=== PATIENT | female | born 1990 | race Caucasian/White ===

== ENCOUNTER 2018-11-03 06:55 | Inpatient (IN) ==
--- NOTE | 2018-11-03 08:02 | OB/GYN History & Physical ---
Date of Encounter: 11/03/18 Time of Encounter: 07:57 Assessment and Plan (1) 40 weeks gestation of Current visit: Yes Status: Acute 28yo at 40+0wks GA, LOAN 11/03/2018 who presents for scheduled IOL at term 1. Scheduled IOL - uncomplicated - GBS negative, VERTEX presentation - SVE: cl/80/-2, will be miso induction until able to place preston - OK for epidural when patient desires, NUBAIN also OK - denies n/v/d, denies VB/LOF/contraction(s) - negative PreE workup on 10/17 with concern for gHTN v. PreE (was negative) Dispo: Miso IOL until able to place preston. Pending cervical thinning, will either repeat miso dose or start IV pitocin. MD DORIAN History of Present Illness Chief complaint: Scheduled IOL at term HPI: Ms. Kelley is a 28 year old female at 40+0wks GA who presents for scheduled IOL for Dr. Kulkarni. Patient is with uncomplicated , full term. Denies n/v/d. Denies abnormal VB/LOF/contraction(S). Reportedly with aminata davies, and does not excessive movement. Denies OLIVEROS/CP. Minimal lower extremity swelling. LOAN: 11/03/2018 GBS negative TAUS: vertex Patient was sent to triage on 10/17 with concern for gHTN v. SI PreE. 24hr urine was completed and was negative (280mg/24hr). VSS, HDS. Patient with normal BP today. Denies si/sx of PreE including: OLIVEROS/blurry vision/CP/increased extremity and facial swelling/RUQPain. Patient for IOL: miso (cl/80/-2) on last cervical examination on 11/01/2017. Past Med Surg Social Fam HX - Past Medical History Medical history: no medical history Psychiatric history: no psych history - Past Surgical History Surgical History: orthopedic, other Additional surgical history: T/A, deviated septum, ACL - Social History Smoking Status: Never smoker Smokeless Tobacco Status: No Alcohol use: none Drug use: none - Family History Mother Adopted: No Family Member Ethnicity: Non- Living Status: Still Living Hx Family Cardiac Disorders: No Hx Family Respiratory Disorders: No Hx Family Cancer: No Hx Family GI Disorders: No Hx Family Endocrine Disorder: No Hx Family Neuromuscular Disorders: No Hx Family Neurologic Disorders: No Hx Family HEENT Disorders: No Hx Family Autoimmune Disorders: No Obstetrical History - Pregnancies : 1 Para: 0 Term: 0 : 0 Ab's: 0 Livin Medications and Allergies Prenata Chewable Tablet 1 tab PO DAILY 10/14/18 [History] Allergy/AdvReac Type Severity Reaction Status Date / Time No Known Allergies Allergy Verified 10/14/18 13:33 Exam - Constitutional Constitutional: well developed, well nourished, no acute distress, average body habitus - HEENT HEENT: Normocephaly, Mucus Membranes Moist - Neck Neck exam: full ROM - Lungs Respiratory exam: CTAB - Cardiovascular Cardiovascular exam: RRR - Abdomen Abdomen: Present: bowel sounds normal - Vagina Vagina: Present: normal moisture - Cervix Dilation: 0 Effacement: 80 Station: -2 - Uterus Uterus exam: Present: normal size, normal contour - Anus/Rectum Anus/Rectum: Present: normal perianal skin, heme negative Results All other labs normal.
[2018-11-03] MEDS ORDERED: miSOPROStol 25 MCG TABLET VG PRN (08:05)
[2018-11-03] MEDS ORDERED: Famotidine 20 MG/2 ML VIAL IVP PRN ×2 (08:06)
[2018-11-03] MEDS ORDERED: *HR* Nalbuphine 10 MG/ML AMPUL IVP PRN (08:06)
[2018-11-03] MEDS ORDERED: Naloxone 0.4 MG/ML INJ IVP PRN ×2 (08:06)
[2018-11-03] MEDS ORDERED: Metoclopramide 10 MG/2 ML VIAL IVP PRN ×2 (08:06)
[2018-11-03] MEDS ORDERED: Ringers Solution, Lactated 1,000 ML IVC SCH ×2 (08:15)
[2018-11-03 08:24] LABS: Basophils % 0.3 %; Eosinophils # 0.2 K/mcL (0.0-0.6); Eosinophils % 1.3 %; Hematocrit 37.9 % (35.3-44.9); Immature Granulocytes % 0.7 % (0-4); Lymphocytes # 2.1 K/mcL (0.6-4.6); Lymphocytes % 15.5 %; Mean Corpuscular HGB Conc 34.3 g/dL (31.6-35.5); Mean Corpuscular Hemoglobin 31.1 pg (28.0-33.3); Mean Corpuscular Volume 90.7 fL (83.0-100.0); Mean Platelet Volume 10.4 fL (9.4-12.4); Monocytes # 0.8 K/mcL (0.0-1.3); Monocytes % 5.7 %; Neutrophils # 10.4 K/mcL (1.6-8.9); Platelet Count 189 K/mcL (140-400); Red Blood Count 4.18 M/mcL (3.82-4.97); Segmented Neutrophils % 76.5 %; White Blood Count 13.5 K/mcL (4.3-11.1)
[2018-11-03 08:36] LABS: Amphetamine Screen,Urine Negative ng/mL (Cutoff=1000); Barbiturate Screen,Urine Negative ng/mL (Cutoff=200); Benzodiazepines Screen,Urine Negative ng/mL (Cutoff=200); Cannabinoid Screen,Urine Negative ng/mL (Cutoff = 50); Cocaine Screen,Urine Negative ng/mL (Cutoff= 300); Opiate Screen,Urine Negative ng/mL (Cutoff=300); Phencyclidine Screen,Urine Negative ng/mL (Cutoff=25)
[2018-11-03] MEDS ORDERED: Bupivacaine-MPF 0.25% 10 ML VIAL EP ONE (10:56)
[2018-11-03] MEDS ORDERED: *HR* FentaNYL (PF) 100 MCG/2 ML VIAL EP ONE (10:56)
--- NOTE | 2018-11-03 10:56 | Anesthesia Evaluation PreOp ---
Date of Encounter: 11/03/18 Time of Encounter: 10:54 - Past History Planned Operation: MIRIAM Cardiac History: Denies any Significant Hx Pulmonary History: Denies Any Significant HX BACK SHOE WORKER History: Denies Any Significant HX Other Medical History: Denies Any Significant HX Anesthesia History: No Prior Anesthetic Complications (denies personal and family h/o GA complications) : Yes Alcohol Use: none Drug use: none Medications and Allergies Prenata Chewable Tablet 1 tab PO DAILY 10/14/18 [History] Allergy/AdvReac Type Severity Reaction Status Date / Time No Known Allergies Allergy Verified 10/14/18 13:33 - Meds/Allergy Pre-op Review Medications Reviewed: Yes Allergies Reviewed: Yes Beta Blockers on Current Med List: No Anesthesia Results - Labs 11/03/18 08:07 Anesthesia Exam 137/85, HR 72 O2 Sat Height 1.85 m Weight 131.6 kg NPO (# of Hours): solids > 5hr Pain Scale: 0 Pain Scale Used: Numeric (1 - 10) - HEENT Pupil (Motor): Pupils equal Mallampati: II Teeth: Normal Oral Opening: Greater than 3 - BACK SHOE WORKER LOC: Oriented BACK SHOE WORKER Motor: Normal RUE, Normal LUE, Normal RLE, Normal LLE, Normal Face BACK SHOE WORKER Sensory: Normal: RUE, LUE, RLE, LLE, Face - Cardiac Rhythm: Regular Murmur: None - Pulmonary Breath Sounds: bilateral Clear Respiratory Effort: Symmetrical Anesthesia Assess/Plan ASA Score: 2 Level of consciousness: Cooperative, Oriented, Tranquil Anesthetic Plan: Epidural Autologous Blood: No Monitoring Plan: Standard Monitors Recovery Plan: Other
[2018-11-03] MEDS ORDERED: Epidural Premix (fent/bupiv) 110 ML EP SCH (11:00)
[2018-11-03] MEDS ORDERED: miSOPROStol 25 MCG TABLET PO ONE (14:15)
[2018-11-03] MEDS ORDERED: Fluconazole 100 MG TABLET PO ONE (14:31)
[2018-11-03] MEDS ORDERED: Oxytocin 20 units/ LR 1000 mL 20 UNIT/1,000 ML BAG IVC SCH (20:30)
[2018-11-04 03:43] LABS: Basophils % 0.2 %; Eosinophils % 0.3 %; Hematocrit 33.4 % (35.3-44.9); Immature Granulocytes % 0.3 % (0-4); Lymphocytes # 1.3 K/mcL (0.6-4.6); Lymphocytes % 10.6 %; Mean Corpuscular HGB Conc 34.1 g/dL (31.6-35.5); Mean Corpuscular Hemoglobin 31.3 pg (28.0-33.3); Mean Corpuscular Volume 91.8 fL (83.0-100.0); Mean Platelet Volume 11.1 fL (9.4-12.4); Monocytes # 1.1 K/mcL (0.0-1.3); Neutrophils # 9.8 K/mcL (1.6-8.9); Platelet Count 236 K/mcL (140-400); Red Blood Count 3.64 M/mcL (3.82-4.97); Red Cell Distribution Width 13.1 % (11.5-14.5); Segmented Neutrophils % 79.6 %; White Blood Count 12.3 K/mcL (4.3-11.1)
[2018-11-04 03:57] LABS: Hemoglobin 11.4 g/dL (11.5-15.4)
--- NOTE | 2018-11-04 04:06 | Event Note ---
Date of Encounter: 11/04/18 Time of Encounter: 04:01 Patient rechecked q4hr and still with same cervical examination. We rechecked her cervix at 0400 and she was found to be minimally more effaced and anterior. /2. Preston was placed with 30cc and IV pitocin was continued. Patient was started on PO Diflucan yesterday for a SEVERE yeast infection. Her vagina was raw with fulmonant yeast one exam. Her vagina was so dry, regardless of the amount of mineral oil and lubricant. Thankfully, on this check, her vaginal exam was significantly improved. Will repeat diflucan dose today. Will keep preston on tension. MD DORIAN
[2018-11-04] MEDS ORDERED: *HR* FentaNYL (PF) 100 MCG/2 ML VIAL ONE (08:18)
[2018-11-04] MEDS ORDERED: *HR* Ropivacaine/PF 0.2% 20 ML VIAL ONE (08:18)
[2018-11-04] MEDS ORDERED: *HR* Phenylephrine 10 MG/ML VIAL ONE (08:19)
--- NOTE | 2018-11-04 09:24 | Anesthesia Procedures ---
Date of Encounter: 11/04/18 Time of Encounter: 08:25 Procedures: Anesthesia - Epidural/Spinal Patient examined: Yes OB Eval: Gestational age: 40.1 OB Eval: : 1 OB Eval: Hx Para: 0 OB Eval: Dilated at (cm): 4 OB Eval: Contractions: Non-stressed pattern Consent Obtained: Yes Supplemental Oxygen: None/Room Air Site Prep: Aseptic Technique, Sterile prep and drape, Povidone-Iodine 1% Patient position: upright Local Anesthetic: Lidocaine 1% Amount of Local Anesthetic used: 3 Touhy Needle Gauge: 18 Touhy Needle Depth (cm): 6 Catheter Depth at Skin (cm): 13 Test Dose (1.5% Lido + Epi): Volume given (mls): 3 Test Dose Result: Negative Loading Dose: Fentanyl (mcg): 100 Loading Dose: Other: 0.2% ropivicaine 5ml, normal saline 3ml's Loading Dose Administered: Thru Catheter Infusion Med: 0.125% Bupivacaine w/ 2 mcg/ml Fentanyl Infusion Rate (mls/hr): [address]: Tegaderm, Tape Interspace Used: L3-L4 Loss of Resistance (MILENA): Yes Blood: No CSF: No Paresthesia: No Spinal Needle Gauge: 25 (Intentional dural puncture. No intrathecal dosing administered.) Procedure: MIRIAM placed successfully with first pass in upright position. MILENA achieved with normal saline. Intentional dural puncture performed with 25g sprotte spinal needle through epidural needle. No intrathecal dosing administered. Epidural catheter advanced without parasthesia or resistance to 13cm at the skin. Test dose administered, patient states no ringing in the ears, palpitations or heaviness noted in legs. Test dose negative. Bolus dose administered as 3ml's every five minutes after verified hemodynamic stability. Post bolus patient states relief with contractions and no nausea. Vitals + FHT's: 0825: B/P 141/91 HR 97 RR 16 0855: B/P 153/88 HR 83 RR 14 VSS throughout procedure. FHT's noted in the 140's.
--- NOTE | 2018-11-04 11:07 | OB Labor Progress Note ---
Date of Encounter: 11/04/18 Time of Encounter: 11:05 Labor Progress Note - Subjective Subjective: Patient comfortable with epidural in place. - Cervix Cervix: 6/90/-2 - Heart Tones Heart Tones: FHR 130 bpm, moderate variability, no accels, no decels. - Skillman Skillman: Q2 - Interventions Interventions: SVE AROM for moderate amount of clear fluid IUPC placed without difficulty - Plan Physician notified: Yes Physician notified details: Dr. Kulkarni updated on SVE and AROM Plan: Continue Pitocin per protocol Anticipate
[2018-11-04] MEDS ORDERED: Fluconazole 100 MG TABLET PO ONE ×2 (12:00→19:30)
[2018-11-04] MEDS ORDERED: *HR* Ropivacaine/PF 0.5% 20 ML VIAL ONE (14:21)
--- NOTE | 2018-11-04 15:23 | Anesthesia Progress Note ---
Date of Encounter: 11/04/18 Time of Encounter: 13:30 Anesthesia Note - Note Note: 11/04/18 15:21 Called to patient bedside with complaints of pain in lower right abdomen. Bolus 5ml Ropivicaine 0.2% administered. Will follow up.
--- NOTE | 2018-11-04 15:28 | Anesthesia Progress Note ---
Date of Encounter: 11/04/18 Time of Encounter: 14:30 Anesthesia Note - Note Note: 11/04/18 15:24 Called to patient bedside with unrelieved pain in right lower abdomen. Epidural catheter pulled back to 11cm at skin from 13 at skin. Bolus ropivicaine 0.5% 5ml administered via epidural catheter. Pt stated relief of pain from 10 to 2. VSS throughout.
--- NOTE | 2018-11-04 16:29 | OB/GYN Procedure Note ---
Delivery - Delivery Date: 11/04/18 Provider: Jaspreet Kulkarni Intrapartum events: none Delivery induction: AROM, oxytocin, preston, misoprostol Delivery augmentation: rupture of membranes, pitocin Delivery monitor: external FHT, external uterine, internal FHT, internal uterine Anesthesia: epidural Quantitated Blood Loss: 300 - Infant (s) A Infant Delivery Date: 11/04/18 Delivery Time: 16:09 Presentation: vertex Position: OA Route of delivery: Gender: Female Viability: Viable Pounds: 9 Ounces: 1 Weight Gram: 4.115 kg at 1 minute: 9 at 5 mins: 9 Shoulder Dystocia: not encountered Specimens collected: cord blood Placenta: spontaneous Cord: 3 umbilical vessels - Repair Episiotomy: none Laceration Description: Vaginal - Complications Delivery complications: none Delivery comments: This patient progressed to complete and pushing. She had a spontaneous vaginal delivery of a female infant over an intact perineum. Infant's head was in the perineum easily the rest of the infant was then delivered with 1 push. cried immediately upon delivery the cord was cut to cut after cord stopped pulsating. The infant was then passed to nurse in attendance. Cord bloods obtained. The placenta was then delivered spontaneously and intact. There are no cervical or perineal lacerations noted. There was a right periurethral laceration which was not repaired as it was not bleeding. There was a vaginal laceration repaired with 0 Vicryl suture in a running locking fashion. Patient tolerated the procedure well. Estimated blood loss 300 mL. Patient delivered a female infant weight was 9 lbs. 1 oz. with Apgars of 9 at 1 minute and 9 at 5 minutes. - Disposition Mom disposition: stable in LDR disposition: stable in LDR
[2018-11-04] MEDS ORDERED: Acetaminophen 325 MG TABLET PO PRN (20:06)
[2018-11-04] MEDS ORDERED: Measles/Mumps/Rubella Vacc 0.5 ML VIAL SQ PRN (20:06)
[2018-11-04] MEDS ORDERED: Oxytocin 20 units/ LR 1000 mL 20 UNIT/1,000 ML BAG IVC SCH (20:06)
[2018-11-04] MEDS ORDERED: Lanolin 7 G OINT...G. TP PRN (20:08)
[2018-11-04] MEDS ORDERED: Benzocaine/Menthol 56 GM AEROSOL SPRAY TP PRN (20:08)
[2018-11-04] MEDS: Ibuprofen 600 MG TABLET PO PRN (21:14)
[2018-11-05 05:53] LABS: Basophils % 0.2 %; Eosinophils # 0.2 K/mcL (0.0-0.6); Eosinophils % 1.3 %; Hematocrit 32.4 % (35.3-44.9); Hemoglobin 11.1 g/dL (11.5-15.4); Immature Granulocytes % 0.6 % (0-4); Lymphocytes # 1.4 K/mcL (0.6-4.6); Lymphocytes % 9.6 %; Mean Corpuscular HGB Conc 34.3 g/dL (31.6-35.5); Mean Corpuscular Hemoglobin 31.5 pg (28.0-33.3); Mean Platelet Volume 10.3 fL (9.4-12.4); Monocytes # 0.8 K/mcL (0.0-1.3); Monocytes % 5.4 %; Neutrophils # 11.9 K/mcL (1.6-8.9); Platelet Count 161 K/mcL (140-400); Red Blood Count 3.52 M/mcL (3.82-4.97); Red Cell Distribution Width 13.2 % (11.5-14.5); Segmented Neutrophils % 82.9 %; White Blood Count 14.4 K/mcL (4.3-11.1)
[2018-11-05 07:54] VITALS: BP 129/83
[2018-11-05] MEDS ORDERED: Prenatal Vit/FA 1 EACH TABLET PO SCH (09:00)
--- NOTE | 2018-11-05 09:01 | Discharge Summary ---
Date of Encounter: 11/05/18 Time of Encounter: 08:59 - Discharge Diagnosis (1) Vaginal delivery Priority: Primary Status: Acute Comments: Continue routine care discharge home today follow up with Dr. Magali daniels 4-6 weeks (2) Breast feeding status of mother Priority: Secondary Status: Acute Comments: support prn - Discharge Medications Prescriptions: New Ibuprofen [Motrin] 600 mg PO Q6HR PRN tablet PRN Reason: Pain Benzocaine/Menthol [place] [Dermoplast [place]] 1 appl TP QID PRN aerosol PRN Reason: See Comments Lanolin [Lansinoh] 1 appl TP QID PRN oint...g. PRN Reason: Continued Prenata Chewable Tablet 1 tab PO DAILY Home Medications: Prenata Chewable Tablet 1 tab PO DAILY 10/14/18 [History] Benzocaine/Menthol [place] [Dermoplast [place]] 1 appl TP QID PRN aerosol 11/05/18 [Rx] Ibuprofen [Motrin] 600 mg PO Q6HR PRN tablet 11/05/18 [Rx] Lanolin [Lansinoh] 1 appl TP QID PRN oint...g. 11/05/18 [Rx] Allergies/Adverse Reactions: Allergy/AdvReac Type Severity Reaction Status Date / Time No Known Allergies Allergy Verified 10/14/18 13:33 Data Procedures and tests throughout hospitalization: Laboratory Tests 11/03/18 11/03/18 11/03/18 08:07 08:07 08:07 WBC 13.5 H RBC 4.18 Hgb 13.0 Hct 37.9 MCV 90.7 MCH 31.1 MCHC 34.3 RDW 13.0 Plt Count 189 MPV 10.4 Immature Gran % 0.7 Seg Neutrophils % 76.5 Lymphocytes % 15.5 Monocytes % 5.7 Eosinophils % 1.3 Basophils % 0.3 Neutrophils # 10.4 H Lymphocytes # 2.1 Monocytes # 0.8 Eosinophils # 0.2 Basophils # 0.0 Urine Opiates Screen Negative Ur Barbiturates Screen Negative Ur Phencyclidine Scrn Negative Ur Amphetamines Screen Negative U Benzodiazepines Scrn Negative Urine Cocaine Screen Negative U Marijuana (THC) Screen Negative Ur Drug Screen Interp See Below Hep Bs Antigen Nonreactive 11/04/18 11/05/18 03:30 05:35 WBC 12.3 H 14.4 H RBC 3.64 L 3.52 L Hgb 11.4 L D 11.1 L Hct 33.4 L 32.4 L MCV 91.8 92.0 MCH 31.3 31.5 MCHC 34.1 34.3 RDW 13.1 13.2 Plt Count 236 161 MPV 11.1 10.3 Immature Gran % 0.3 0.6 Seg Neutrophils % 79.6 82.9 Lymphocytes % 10.6 9.6 Monocytes % 9.0 5.4 Eosinophils % 0.3 1.3 Basophils % 0.2 0.2 Neutrophils # 9.8 H 11.9 H Lymphocytes # 1.3 1.4 Monocytes # 1.1 0.8 Eosinophils # 0.0 0.2 Basophils # 0.0 0.0 Urine Opiates Screen Ur Barbiturates Screen Ur Phencyclidine Scrn Ur Amphetamines Screen U Benzodiazepines Scrn Urine Cocaine Screen U Marijuana (THC) Screen Ur Drug Screen Interp Hep Bs Antigen Labs on day of discharge: Labs from last 24 hours 11/05/18 05:35 WBC 14.4 H RBC 3.52 L Hgb 11.1 L Hct 32.4 L MCV 92.0 MCH 31.5 MCHC 34.3 RDW 13.2 Plt Count 161 MPV 10.3 Immature Gran % 0.6 Seg Neutrophils % 82.9 Lymphocytes % 9.6 Monocytes % 5.4 Eosinophils % 1.3 Basophils % 0.2 Neutrophils # 11.9 H Lymphocytes # 1.4 Monocytes # 0.8 Eosinophils # 0.2 Basophils # 0.0 Date of admission: 11/03/18 06:55 Primary care physician: Marylin Rodarte Consults: 11/04/18 20:06 Consult to Cdl A Driver [CONS] Routine Comment: Vaginal delivery, consult needed Discharging clinician: Nelida Ham (deepak) Anticipated date of discharge: 11/05/18 - Patient Status Disposition: Home, Self-Care Condition: Good Functional capacity at discharge: independent ambulation - Discharge Instructions Follow Up With: Pinky Rivers DO [Primary Care Provider] - Jaspreet Kulkarni MD [Partnered Physician] - - Diet and Activity Activity: increase activity as tolerated Diet: regular diet Hospital Course Reason for admission: induction of labor Delivery: Episiotomy: none Laceration: none Other procedures: none complications: none Discharge diagnosis: IUP at term delivered [place] baby: female (breast feeding) Time Attestation: Total time spent providing and/or coordinating discharge services: Time Spent: Less than 30 minutes Exam - Constitutional Vitals: Temp Pulse Resp BP Pulse Ox 97.8 F 78 14 129/83 98 11/05/18 07:53 11/05/18 07:53 11/05/18 07:53 11/05/18 07:53 11/05/18 07:53 General appearance IM: A&O X 3, pleasant, answers questions appropriately - Respiratory Respiratory exam: Present: CTAB - Cardiovascular Cardiovascular exam IM: Present: RRR, +S1, +S2 - GI/Abdominal GI/Abdominal exam IM: normal bowel sounds - Uterine Tone: Firm Uterus Position: At Umbilicus, Midline - Extremities Exam Extremities exam IM: Present: full ROM, normal inspection, pedal edema (1+ bilateral feet) - Neurological Exam Neurological exam: alert, oriented X3, reflexes normal
[2018-11-05] MEDS: Ibuprofen 600 MG TABLET PO PRN (09:09)
== END 2018-11-05 18:45 | disposition home or self-care (01) | DRG 806 ==
LOC: 1NENULAB 06:55 → 1NENUOBS 11-04 20:00
PROVIDERS: ADMIT Student in an Organized Health Care Education/Training Program; ATTEND Student in an Organized Health Care Education/Training Program

== ENCOUNTER → 2020-03-06 14:40 | Observation (INO) ==
[2020-03-06 11:49] LABS: Bilirubin,Urine Negative (Negative); Blood,Urine Moderate (Negative); Clarity,Urine Clear (Clear); Color,Urine Light-Yellow (Yellow); Glucose,Urine (UA) Normal (Normal); Ketones,Urine Negative (Negative); Leukocyte Esterase,Urine Negative (Negative); Mucus,Urine Few per lpf (None-Few); Nitrite,Urine Negative (Negative); Protein,Urine Negative (Neg-Trace); RBC,Urine 30-50 per hpf (0-3); Squamous Epithelial Cell,Urine Few per hpf (None-Few); Urobilinogen,Urine Normal (Normal); WBC,Urine 0-3 per hpf (0-3)
[2020-03-06 13:31] LABS: Trichomonas DNA Not Detected (Not Detect)
[2020-03-06 13:32] LABS: Candida DNA Not Detected (Not Detect); Gardnerella DNA Not Detected (Not Detect)
== END | disposition home or self-care (01) ==
LOC: 1NENULAB
PROVIDERS: ADMIT Obstetrics & Gynecology; ATTEND Obstetrics & Gynecology

== ENCOUNTER 2020-05-02 10:57 | Inpatient (IN) ==
[2020-05-02] MEDS ORDERED: Oxytocin 20 units/ LR 1000 mL 20 UNIT/1,000 ML BAG IVC ONE ×2 (11:06→16:38)
[2020-05-02] MEDS ORDERED: Famotidine 20 MG/2 ML VIAL IVP ONE (11:06)
[2020-05-02] MEDS ORDERED: Ringers Solution, Lactated 1,000 ML IVC ONE (11:06)
[2020-05-02] MEDS ORDERED: Metoclopramide 10 MG/2 ML VIAL IVP ONE (11:06)
[2020-05-02] MEDS ORDERED: CeFAZolin 2,000 MG/50 ML BAG IVPB ONE (11:06)
[2020-05-02] MEDS ORDERED: Ringers Solution, Lactated 1,000 ML IVC SCH (11:15)
[2020-05-02 11:45] LABS: Basophils % 0.3 %; Eosinophils # 0.1 K/mcL (0.0-0.6); Hematocrit 37.3 % (35.3-44.9); Hemoglobin 12.8 g/dL (11.5-15.4); Immature Granulocytes % 0.9 % (0-4); Lymphocytes # 2.2 K/mcL (0.6-4.6); Mean Corpuscular HGB Conc 34.3 g/dL (31.6-35.5); Mean Corpuscular Hemoglobin 31.2 pg (28.0-33.3); Mean Platelet Volume 10.5 fL (9.4-12.4); Monocytes # 0.6 K/mcL (0.0-1.3); Monocytes % 5.2 %; Neutrophils # 8.9 K/mcL (1.6-8.9); Platelet Count 158 K/mcL (140-400); Red Cell Distribution Width 12.9 % (11.5-14.5); Segmented Neutrophils % 74.6 %
[2020-05-02 11:52] LABS: Amphetamine Screen,Urine Negative ng/mL (Cutoff=1000); Barbiturate Screen,Urine Negative ng/mL (Cutoff=200); Benzodiazepines Screen,Urine Negative ng/mL (Cutoff=200); Cannabinoid Screen,Urine Negative ng/mL (Cutoff = 50); Cocaine Screen,Urine Negative ng/mL (Cutoff= 300); Opiate Screen,Urine Negative ng/mL (Cutoff=300); Phencyclidine Screen,Urine Negative ng/mL (Cutoff=25)
[2020-05-02 12:08] LABS: Alanine Aminotransferase 11 Units/L (7-52); Aspartate Amino Transferase 15 Units/L (13-39); BUN/Creatinine Ratio 12 (6-26); Blood Urea Nitrogen 8 mg/dL (6-20); Lactate Dehydrogenase 148 Units/L (140-271); eGFR For African Americans > 60 (> 60); eGFR For Non-African Americans > 60 (> 60)
[2020-05-02] MEDS ORDERED: CeFAZolin Syr 3,000MG/30 ML 3,000 MG/30 ML SYRINGE IVPB ONE (12:13)
[2020-05-02 12:33] LABS: Creatinine,Urine 97 mg/dL; Protein/Creatinine Ratio,Urine 0.16 mg/mg (0.00-0.20)
[2020-05-02] MEDS ORDERED: *HR* Morphine Sulfate/PF 10 MG/10 ML AMPUL ONE (13:13)
[2020-05-02] MEDS ORDERED: *HR* Phenylephrine 10 MG/ML VIAL ONE (13:27)
[2020-05-02] MEDS ORDERED: Ondansetron 4 MG/2 ML VIAL ONE (13:32)
[2020-05-02] MEDS ORDERED: Acetaminophen IV 1,000 MG/100 ML INFUS..BTL ONE (13:37)
[2020-05-02] MEDS: metroNIDAZOLE 500 MG TABLET PO SCH ×2 (17:00→19:39)
[2020-05-02] MEDS ORDERED: Simethicone 80 MG TAB.CHEW PO PRN (17:23)
[2020-05-02] MEDS ORDERED: Sennosides 8.6 MG TABLET PO PRN (17:23)
[2020-05-02] MEDS ORDERED: Ondansetron 4 MG/2 ML VIAL IVP PRN (17:23)
[2020-05-02] MEDS ORDERED: Metoclopramide 10 MG/2 ML VIAL IVP PRN (17:23)
[2020-05-02] MEDS ORDERED: Oxytocin 20 units/ LR 1000 mL 20 UNIT/1,000 ML BAG IVC SCH (17:23)
[2020-05-02] MEDS: CeFAZolin 2 GM/120 ML BAG IVPB SCH (19:38)
[2020-05-03] MEDS: CeFAZolin 2 GM/120 ML BAG IVPB SCH (04:51)
[2020-05-03] MEDS: Ibuprofen 600 MG TABLET PO PRN ×3 (05:17→20:24)
[2020-05-03 05:52] LABS: Basophils % 0.2 %; Eosinophils # 0.1 K/mcL (0.0-0.6); Eosinophils % 0.6 %; Hematocrit 36.2 % (35.3-44.9); Hemoglobin 12.1 g/dL (11.5-15.4); Immature Granulocytes % 0.5 % (0-4); Lymphocytes # 1.4 K/mcL (0.6-4.6); Lymphocytes % 10.7 %; Mean Corpuscular HGB Conc 33.4 g/dL (31.6-35.5); Mean Corpuscular Hemoglobin 30.5 pg (28.0-33.3); Mean Corpuscular Volume 91.2 fL (83.0-100.0); Mean Platelet Volume 10.2 fL (9.4-12.4); Monocytes # 0.7 K/mcL (0.0-1.3); Monocytes % 5.4 %; Neutrophils # 10.6 K/mcL (1.6-8.9); Platelet Count 152 K/mcL (140-400); Red Blood Count 3.97 M/mcL (3.82-4.97); Red Cell Distribution Width 12.7 % (11.5-14.5); Segmented Neutrophils % 82.6 %; White Blood Count 12.8 K/mcL (4.3-11.1)
[2020-05-03] MEDS: metroNIDAZOLE 500 MG TABLET PO SCH ×3 (08:51→20:25)
[2020-05-03] MEDS: Prenatal Vit/FA 1 EACH TABLET PO SCH (08:51)
[2020-05-03] MEDS ORDERED: [UNRECOGNIZED DRUG - OTHER] PO SCH (09:00)
[2020-05-03] MEDS: *HR* OxyCODONE/APAP 5/325 TABLET PO PRN ×3 (11:58→22:13)
[2020-05-03] MEDS ORDERED: CeFAZolin 2 GM/120 ML BAG IVPB SCH (12:00)
[2020-05-03] MEDS ORDERED: Lanolin 7 G OINT...G. TP PRN (20:58)
[2020-05-04] MEDS: *HR* OxyCODONE/APAP 5/325 TABLET PO PRN ×2 (03:09→10:08)
[2020-05-04] MEDS: Ibuprofen 600 MG TABLET PO PRN ×2 (03:09→07:37)
[2020-05-04] MEDS: metroNIDAZOLE 500 MG TABLET PO SCH (07:37)
[2020-05-04] MEDS: Prenatal Vit/FA 1 EACH TABLET PO SCH (07:38)
[2020-05-04 07:45] VITALS: BP 122/82
== END 2020-05-04 11:25 | disposition home or self-care (01) | DRG 788 ==
LOC: 1NENULAB 10:57 → 1NENUOBS 16:47
PROVIDERS: ADMIT Obstetrics & Gynecology; ATTEND Obstetrics & Gynecology